=== PATIENT | male | born 1950 | race Caucasian/White ===

== ENCOUNTER 2018-01-19 05:22 | Inpatient (IN) | payer MEDICARE ==
[~2018-01-19] VITALS: Ht 185.4 cm; Wt 107.4 kg
[~2018-01-19 05:22] MED LIST: ACET325T14 PO; ALLERGY SHOTS; ASPI-496 PO; DILT180C59 PO; INDOMETHACIN PO; LORA1TAB46 PO; METHOCARBAMOL PO
[2018-01-19] MEDS ORDERED: LACTATED RINGERS 1,000 ML IV SCH (06:12)
[2018-01-19 06:40] VITALS: BP 162/90
[2018-01-19] MEDS ORDERED: BUPIVACAINE/PF-EPI 0.25% 1:200K ONE (06:50)
[2018-01-19] MEDS ORDERED: THROMBIN 5,000 UNIT VIAL TP ONE ×2 (06:50→08:31)
[2018-01-19] MEDS ORDERED: FAMOTIDINE 20 MG TABLET PO ONE (07:00)
[2018-01-19] MEDS ORDERED: OxyconTIN ER 10 MG TAB.ER PO ONE (07:00)
[2018-01-19] MEDS ORDERED: ONDANSETRON ODT 8 MG PO ONE (07:00)
[2018-01-19] MEDS ORDERED: GABAPENTIN 300 MG CAPSULE PO ONE (07:00)
[2018-01-19] MEDS ORDERED: ACETAMINOPHEN 500 MG TABLET PO ONE (07:00)
[2018-01-19] MEDS ORDERED: MIDAZOLAM 1 MG/ML, 2ML ONE (07:15)
[2018-01-19] MEDS ORDERED: FENTANYL PF 100 MCG/2ML ONE ×3 (07:15→12:18)
[2018-01-19] MEDS ORDERED: CEFAZOLIN 1,000 MG ONE (07:22)
[2018-01-19] MEDS ORDERED: GLYCOPYRROLATE 0.2MG/1ML, 5ML ONE (07:22)
[2018-01-19] MEDS ORDERED: SUCCINYLCHOLINE 20 MG/ML, 10ML ONE (07:22)
[2018-01-19] MEDS ORDERED: DEXAMETHASONE 4 MG/ML, 1ML ONE (07:22)
[2018-01-19] MEDS ORDERED: ROCURONIUM 10 MG/ML,10ML ONE (07:22)
[2018-01-19] MEDS ORDERED: NEOSTIGMINE 1 MG/ML, 10ML ONE (07:22)
[2018-01-19] MEDS ORDERED: LABETALOL 5MG/ML, 20ML ONE (07:22)
[2018-01-19] MEDS ORDERED: PROPOFOL 10 MG/ML, 20ML ONE (07:22)
[2018-01-19] MEDS ORDERED: MINERAL OIL 10 ML VIAL MC ONE (08:27)
[2018-01-19] MEDS ORDERED: BUPIVACAINE/PF-EPI 0.25% 1:200K IM ONE (08:31)
[2018-01-19] MEDS ORDERED: OXYcodone 5 MG/5 ML ORAL.SOL UDC ONE (12:18)
[2018-01-19] MEDS: FENTANYL PF 100 MCG/2ML IV PRN ×2 (12:29→12:39)
[2018-01-19] MEDS ORDERED: MIDAZOLAM 1 MG/ML, 2ML IV PRN (12:30)
[2018-01-19] MEDS ORDERED: ONDANSETRON ODT 8 MG PO PRN (12:30)
[2018-01-19] MEDS ORDERED: ALBUTEROL SULFATE 2.5 MG/3 ML NPPB PRN (12:30)
[2018-01-19] MEDS ORDERED: EPHEDRINE 50 MG/ML, 1ML IVPush PRN (12:30)
[2018-01-19] MEDS ORDERED: PROMETHAZINE 25 MG/ML, 1ML IV PRN (12:30)
[2018-01-19] MEDS ORDERED: MEPERIDINE/PF 25MG/0.5ML IVPush PRN (12:30)
[2018-01-19] MEDS ORDERED: LABETALOL 5MG/ML, 20ML IV PRN (12:30)
[2018-01-19] MEDS ORDERED: hydrALAzine 20 MG/ML, 1ML IV PRN (12:30)
[2018-01-19] MEDS ORDERED: HYDROcodone/APAP 7.5-325MG/15ML UDC PO PRN (12:30)
[2018-01-19] MEDS ORDERED: OXYcodone 5 MG/5 ML ORAL.SOL UDC PO PRN (12:30)
[2018-01-19] MEDS ORDERED: HYDROmorphone 2 MG/ML, 1ML ONE (12:31)
[2018-01-19] MEDS: HYDROmorphone 1 MG/ML, 1ML IV PRN ×2 (12:32→12:46)
[2018-01-19 13:54] VITALS: BP 131/81
[2018-01-19] MEDS ORDERED: LACTATED RINGERS 500 ML IV PRN (14:30)
[2018-01-19] MEDS ORDERED: OPIUM/BELLADONNA SUPP.RECT 16.2-30 MG PR PRN (14:30)
[2018-01-19] MEDS ORDERED: ONDANSETRON 2MG/ML, 2ML IV PRN (14:30)
[2018-01-19] MEDS ORDERED: morphine SULFATE 10 MG/ML, 1ML IV PRN (14:30)
[2018-01-19] MEDS: POTASSIUM CHLORIDE 20 MEQ in SODIUM CHLORIDE 0.45% 1,000 ML IV SCH ×2 (15:13→23:07)
[2018-01-19] MEDS: CEFAZOLIN PMX 1GM/50ML 50 ML IVPB SCH ×2 (15:13→23:07)
[2018-01-19] MEDS: ACETAMINOPHEN 500 MG TABLET PO SCH ×2 (15:14→20:30)
[2018-01-19] MEDS: OXYcodone IR 5MG TABLET PO PRN ×3 (17:38→23:42)
[2018-01-19 18:57] VITALS: BP 126/71
[2018-01-19] MEDS ORDERED: [UNRECOGNIZED DRUG - OTHER] PO SCH (21:00)
[2018-01-19] MEDS ORDERED: DILTIAZEM PO SCH ×2 (21:00→21:36)
[2018-01-19] MEDS ORDERED: [UNRECOGNIZED DRUG - OTHER] PO SCH (21:36)
[2018-01-20 00:44] VITALS: BP 124/70
[2018-01-20] MEDS: OXYcodone IR 5MG TABLET PO PRN ×3 (02:58→09:14)
[2018-01-20] MEDS: ACETAMINOPHEN 500 MG TABLET PO SCH ×2 (03:04→08:38)
[2018-01-20 05:11] LABS: ANION GAP 9 mmol/L (5-15); CALCIUM 7.6 mg/dL (8.5-10.1); CHLORIDE 108 mmol/L (98-107)
[2018-01-20 05:13] VITALS: BP 114/68
[2018-01-20 05:13] LABS: CREATININE 0.95 mg/dL (0.7-1.3)
[2018-01-20] MEDS: POTASSIUM CHLORIDE 20 MEQ in SODIUM CHLORIDE 0.45% 1,000 ML IV SCH ×2 (06:02→12:28)
[2018-01-20 07:42] VITALS: BP 107/63
[2018-01-20] MEDS ORDERED: ENOXAPARIN 40 MG/0.4 ML SQ SCH (08:00)
[2018-01-20] MEDS ORDERED: DILTIAZEM PO SCH (09:00)
[2018-01-20] MEDS ORDERED: [UNRECOGNIZED DRUG - OTHER] PO SCH (09:00)
[2018-01-20 11:53] VITALS: BP 111/78
[2018-01-20] MEDS ORDERED: OXYC5CAP2 PO (12:14)
== END 2018-01-20 12:07 | disposition home or self-care (01) | DRG 708 ==
LOC: OUT 05:22 → 4NOR 13:30 → OUT 13:48 → 4NOR 13:49 → DCLOUNGE 01-20 12:07
PROVIDERS: ADMIT Urology; ATTEND Urology
PROC: 8E0W4CZ Robotic Assisted Procedure of Trunk Region, Percutaneous Endoscopic Approach (ICD-10-PCS; 2018-01-19)
PROC: 0VT04ZZ Resection of Prostate, Percutaneous Endoscopic Approach (ICD-10-PCS; principal; 2018-01-19 07:30)
DX: C61 Malignant neoplasm of prostate (principal)
CPT/HCPCS: 36415; 80048; 85014; 85018; 86850; 86900; 88309; C1729; J0690; J1100; J1170; J1650; J2250; J2704; J2710; J3010; J3480; J3490; Q0162; C1760; J0330; J2270; J7120

== ENCOUNTER → 2018-01-26 | Outpatient (CLI) | payer MEDICARE ==
[~2018-01-26] MED LIST changes: +OXYC5CAP2 PO
== END | disposition home or self-care (01) ==
LOC: RAD 07:58
PROVIDERS: ATTEND Urology
DX: C61 Malignant neoplasm of prostate (principal)
CPT/HCPCS: 74430